=== PATIENT | female | born 1995 | race Caucasian/White ===

== ENCOUNTER 2017-07-10 10:37 | Emergency (ER) | payer BC ==
[~2017-07-10] VITALS: Ht 157.5 cm; Wt 79.3 kg
[2017-07-10 10:44] VITALS: TEMP 37; Ht 157.5 cm; Wt 79.3 kg
[2017-07-10] MEDS ORDERED: ETON1IMP2 (11:15)
--- NOTE | 2017-07-10 11:35 | DIAGNOSTIC IMAGING REPORT ---
R WRIST W/NAVICULAR MIN 3 VIEWS HISTORY: 22 years-old Female r wrist pain, "locks at times". Navicular region acute right wrist pain COMPARISON: None available TECHNIQUE: 4 views of the wrist with scaphoid view for a total of 5 images FINDINGS: 4 mm sclerotic focus involving the lateral aspect of the scaphoid waist. No acute fracture, dislocation or significant degenerative changes. Scaphoid appears intact. No opaque foreign body. IMPRESSION: 1. No acute fracture or dislocation. 2. 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 The above report was generated using voice recognition software. It may contain grammatical, syntax or spelling errors. Electronically signed by: Stefan Goff M.D. 07/10/2017 11:33 AM Dictated Date/Time: 07/10/2017 11:31 AM
--- NOTE | 2017-07-10 11:38 | EMERGENCY ROOM VISIT NOTE ---
History First contact with patient: 10:50 Chief Complaint: WRIST PAIN Stated Complaint: WRIST PAIN, LACK OF MOBILITY, NUMBNESS IN FINGERS History of Present Illness The patient is a 22 year old female who presents to the Emergency Room via private vehicle accompanied by male with complaints of "wrist pain, lack of mobility, numbness in fingers". The patient states that she is experiencing right wrist pain. It is been providing her trouble for the past 5 years. She has been seen by an orthopedic hand specialist for this. She notes that she has a wrist brace at home. She states that earlier today she was operating a stapler and had her right hand extended at the location of the wrist and was pressing down on the stapler. She states that then her wrist locked in a position with pain around the right scaphoid region. She points to the extensor tendons overlying this bony region. She rates the overall pain as an 8 /10. She notes numbness extending down to her fingers and inability to move them. She denies any trouble speaking/with speech or other weakness. She states that she came here today because when she sees providers in follow-up for this she never has had recurring/walk at that time therefore thought it would be a good idea to present while it is occurring. She is right-hand dominant. She has been doing a lot of typing recently, indicating that she is finishing her honors thesis. Review of Systems A complete 6-point Review of Systems was discussed with the patient, with pertinent positives and negatives listed in the History of Present Illness. All remaining Review of Systems questions can be considered negative unless otherwise specified. Past Medical/Surgical History Medical Problems: (1) History of multiple concussions Family History Noncontributory Social History Smoking Status: Never Smoker Housing Status: lives with roommate Occupation Status: [employer] student Current/Historical Medications Miscellaneous Medications Etonogestrel (Nexplanon) Physical Exam Vital Signs Date Time Temp Pulse Resp B/P (MAP) Pulse Ox O2 Delivery O2 Flow Rate FiO2 07/10/17 12:03 71 17 114/69 100 07/10/17 10:44 37.0 103 18 123/77 97 Room Air Physical Exam VITAL SIGNS - Vital signs and nursing notes were reviewed. Stable. GENERAL -22-year-old female appearing her stated age who is in no acute distress. Communicates well with provider and answers questions appropriately. SKIN - Without rashes. No meningeal or petechial rash. The skin overlying the right wrist is unremarkable. HEAD - NC/AT. EXTREMITIES - No clubbing or peripheral cyanosis. Skin overlying the right hand and wrist is unremarkable. Slight edema noted to the distal right fingers. Excellent radial pulse. There does appear to be slight resistance to flexion of the right wrist. Then the wrist seem to loosen up and the patient notes that the pain was then alleviated. It appears that the extensor tendons overlying the right scaphoid region that extends from the right thumb and first digit into the forearm are likely the cause of this. Negative Deepika test. She was neurovascularly intact in this region. Medical Decision & Procedures ER Provider Diagnostic Interpretation: R WRIST W/NAVICULAR MIN 3 VIEWS HISTORY: 22 years-old Female r wrist pain, "locks at times". Navicular region acute right wrist pain COMPARISON: None available TECHNIQUE: 4 views of the wrist with scaphoid view for a total of 5 images FINDINGS: 4 mm sclerotic focus involving the lateral aspect of the scaphoid waist. No acute fracture, dislocation or significant degenerative changes. Scaphoid appears intact. No opaque foreign body. IMPRESSION: 1. No acute fracture or dislocation. 2. 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 The above report was generated using voice recognition software. It may contain grammatical, syntax or spelling errors. Electronically signed by: Stefan Goff M.D. 07/10/2017 11:33 AM Dictated Date/Time: 07/10/2017 11:31 AM Medical Decision Patient was seen and evaluated as above in room D6. She presents with right wrist pain/locked. Review was performed of nursing notes and vital signs. After obtaining a thorough history and physical examination the above work up was performed. She has seen orthopedics and hand specialist in the past. She has had an MRI. X-ray was obtained here. There is a sclerotic region which is favored to be a bony island. I do not suspect this is causing her symptoms. It is more in the tendinous regions. I suspect she likely is experiencing tenosynovitis. She was given a thumb spica splint and is to use NSAIDs. She is to call the hand specialist which she previously followed up with for further evaluation and management or to return with worsening. No evidence of emergent process on exam. The patient was educated upon management, had questions answered prior to discharge, and was discharged home in good condition. In the evaluation and treatment of this patient, the following differential diagnoses were considered: Wrist Sprain, Wrist Fracture, Wrist Dislocation, Scapholunate Dissociation, Carpal Fracture, Metacarpal Fracture, Radial Styloid Process Fracture, Ulnar Styloid Process Fracture, or Carpal Tunnel Syndrome. Impression Primary Impression: Wrist pain, right Departure Information Dispostion Home / Self-Care Condition GOOD Referrals [facility] (PCP) Cedrick Roper MD Patient Instructions [facility] Additional Instructions You have been treated in the Emergency Department for Wrist Pain. For pain control, you can use the following [id number] medicines (if >12 yo): - Regular strength (325mg/tab) Tylenol (acetaminophen) 2 tabs every 4-6 hours as needed. Do not exceed 12 tablets in a 24 hour period. Avoid taking more than 3 grams (3000 mg) of Tylenol per day. This includes any other sources of acetaminophen you may take on a regular basis. - Regular strength (200 mg/tab) Advil (ibuprofen) 1-2 tabs every 4-6 hours as needed. Do not exceed a dose of 3200 mg per day. If this is a recent injury (<24 hrs), ice can be applied to the area of pain for the first 3 days to help decrease pain and inflammation. You have been provided the number for an Orthopaedic Surgeon. You should call this number as soon as possible to establish a follow-up visit from today's Emergency Department visit. Keep the brace/splint in place until evaluated by Orthopedics. Return to the Emergency Department if your current symptoms worsen despite treatment course outlined above, or if you develop any of the following symptoms : intractable pain despite aforementioned treatment course or new onset of numbness or tingling of the fingers.
[2017-07-10 12:03] VITALS: BP 114/69; PULSE 71; O2SAT 100
== END 2017-07-10 12:04 | disposition home or self-care (01) ==
LOC: C.EDB 10:39 → C.EDD 12:04
DX: M25.531 Pain in right wrist (principal); Z79.3 Long term (current) use of hormonal contraceptives